=== PATIENT | female | born 1995 | race Caucasian/White ===

== ENCOUNTER 2020-10-09 14:06 | Outpatient (REF) | payer OTHER, SELFPAY | END 2020-10-09 14:07 | disposition home or self-care (01) | LOC: HO.LAB 14:06 | PROVIDERS: Visit Provider Internal Medicine | DX: Z20.828 Contact with and (suspected) exposure to other viral communicable diseases (principal) | CPT/HCPCS: C9803; U0003 ==

== ENCOUNTER 2020-11-04 04:56 | Emergency (ER) | payer OTHER, SELFPAY ==
[2020-11-04 05:00] VITALS: BP 119/74; PULSE 83; RESP 17; TEMP 36.7; O2SAT 99; BMI 25.2
[2020-11-04 05:06] LABS: Glucose, Whole Blood 147 mg/dL (60-115)
--- NOTE | 2020-11-04 05:56 | ED_ITS ---
HPI - Dizziness General Chief Complaint: Dizziness Stated Complaint: Dizziness/?Low Blood Sugar Time Seen by Provider: 11/04/20 05:56 Source: patient Mode of arrival: ambulatory Limitations: no limitations History of Present Illness HPI Narrative: Patient been feeling weak for last 1 week coughing occasionally had low degree temperature for last 2 days today she woke up at 03:00 feeling very weak and dizzy patient tested for COVID last month 10/09 was negative patient denies any urinary symptoms MD elicited complaint: dizziness and lightheadedness Related Data Allergies Allergy/AdvReac Type Severity Reaction Status Date / Time No Known Allergies Allergy Verified 11/04/20 05:00 Review of Systems Review of Systems: Constitutional : No Weight loss, +_Fever, No Chills ENT/Mouth : No sore throat, No Rhinorrhea Eyes: No Eye Pain, No Swelling Cardiovascular : No Chest Pain, no Dyspnea on Exertion, No Orthopnea, No Edema, No Palpitations, no SOB Respiratory : ++Cough, No Sputum Gastrointestinal : no Nausea, No Vomiting, No Diarrhea, No abdominal Pain, No Hematochezia, No Melena Genitourinary : No Dysuria, No Urinary Frequency Musculoskeletal : No joint pain, No Myalgias, No Joint Swelling Skin : No Skin Lesions, No rash Neuro : No Weakness, No Numbness, pos Dizziness, No Headache Psych : No Anxiety/Panic, No Depression Heme/Lymph: No Bruising, No Lymphadenopathy Endocrine : No Polyuria, No Polydipsia All other systems reviewed and are negative [facility] Past Medical History Medical History Hypoglycemia Social History Social History Advance Directives: No Advance Directives Information Provided: No Physical Exam Vital Signs: Vital Signs: Last Vital Signs Temp 98.0 F 11/04/20 05:00 Pulse 83 11/04/20 05:00 Resp 17 11/04/20 05:00 BP 119/74 11/04/20 05:00 Pulse Ox 99 11/04/20 05:00 Body Mass Index 25.2 Appearance: Alert. Oriented X3. No acute distress. Eyes: Pupils equal, round and reactive to light. ENT: Pharynx normal. Dry cough+ Neck: Normal inspection. Neck supple. CVS: Normal heart rate and rhythm. Pulses normal. Respiratory: No respiratory distress. Breath sounds normal. Abdomen: Soft and nontender. Bowel sounds present no mass palpable no CVA tenderness Skin: Skin warm and dry. Normal skin color. Normal skin turgor. Extremities: No lower extremity edema. Neuro: Oriented X 3. No motor deficit. No sensory deficit. MDM - Dizziness MDM Narrative Medical decision making narrative: Patient with weakness cough low-grade fever and dizziness likely viral infection possible COVID. Chest x-ray negative for any infiltrate waiting for the COVID result. Patient signed out to Dr. Bautista for reevaluation after lab results Lab Data Labs: Lab Results 11/04/20 Range/Units 05:01 POC Glucose 147 H (60-115) mg/dL
--- NOTE | 2020-11-04 06:01 | XR_ITS ---
EXAMINATION: CHEST 1 VIEW CLINICAL INFORMATION: Atypical pneumonia. COMPARISON: None. TECHNIQUE: An AP view of the chest is provided. FINDINGS: The cardiac silhouette is not enlarged. The mediastinal and hilar contours are unremarkable. There are neither pleural effusions nor pneumothoraces. There are no consolidations. The osseous structures are unremarkable. XR/XR chest 1V IMPRESSION: No evidence for acute disease.
[2020-11-04 06:41] LABS: Glucose Urine UA NEG (NEG); Leukocyte Esterase Urine NEG (NEG); Nitrite Urine NEG (NEG); PH 6.5 (5.0-8.0); Urine Blood 1+ (NEG); Urine Ketones 5 MG/DL (NEG); Urine Protein NEG (NEG-TRACE)
[2020-11-04 07:12] LABS: Appearance Urine HAZY; Color Urine YELLOW
[2020-11-04 07:14] LABS: Influenza A PCR NEGATIVE (Negative); Influenza B PCR NEGATIVE (Negative); Resp Syncy Virus RNA Qual PCR NEGATIVE (Negative)
[2020-11-04 07:16] LABS: Bacteria Urine 1+ /LPF; Mucus Urine 1+ /LPF; Squamous Epithelial Cell Urine 1+ /LPF; WBC Urine 0-2 /HPF (0-4)
[2020-11-04 07:21] LABS: UPreg QC Valid YES; Urine Pregnancy NEGATIVE (NEGATIVE)
[2020-11-04 07:24] VITALS: BP 115/72; PULSE 82; RESP 18; O2SAT 100
[2020-11-04 07:25] LABS: SARS COV2 PCR INHOUSE POSITIVE (Negative)
== END 2020-11-04 07:50 | disposition home or self-care (01) ==
PROVIDERS: Emergency Provider Internal Medicine
DX: R42 Dizziness and giddiness (principal); R05 Cough; R50.9 Fever, unspecified; Z20.828 Contact with and (suspected) exposure to other viral communicable diseases
CPT/HCPCS: 0241U; 71045; 81001; 81003; 81025; 82947; 99283

== ENCOUNTER 2025-03-03 02:59 | Emergency (ER) | payer OTHER, SELFPAY ==
[2025-03-03 03:00] VITALS: BP 116/70; PULSE 78; RESP 16; TEMP 36.2; O2SAT 97; BMI 27.7
[2025-03-03 03:43] LABS: Basophils Percent Auto 0.1 % (0-2); Eosinophils Absolute Auto 0.2 X10*3/uL (0.0-0.4); Hematocrit 37.1 % (37.0-47.0); Hemoglobin 12.7 g/dl (12.0-16.0); Imm Gran Abs Auto 0.02 X10*3/uL (0.00-0.03); Imm Gran Pct Auto 0.2 % (0.0-0.4); Lymphocytes Percent Auto 24.2 % (20-40); Mean Corpuscular HGB Conc 34.2 g/dl (31.0-35.0); Mean Corpuscular Hemoglobin 27.7 pg (27.0-33.0); Mean Corpuscular Volume 80.8 fL (80.0-98.0); Mean Platelet Volume 9.3 fL (9.4-12.3); Monocytes Absolute Auto 0.4 X10*3/uL (0.1-1.2); Monocytes Percent Auto 5.2 % (2-11); Neutrophils Absolute Auto 5.7 x10*3/uL (2.0-8.3); Neutrophils Percent Auto 68.3 % (45-73); Platelet Count 278 X10*3/uL (160-400); Red Blood Count 4.59 X10*6/uL (4.20-5.50); Red Cell Distribution Width 14.5 % (11.0-16.0); White Blood Count 8.3 X10*3/uL (4.8-10.8)
[2025-03-03 03:44] LABS: MANUAL DIFF FLAG NO
[2025-03-03 03:55] VITALS: BP 141/80; PULSE 82; RESP 16; TEMP 36.9; O2SAT 100
[2025-03-03 04:00] LABS: Glucose, Whole Blood 140 mg/dL (60-115)
[2025-03-03 04:04] LABS: Alanine Aminotransferase 14 U/L (0-31); Albumin Level 3.9 g/dL (3.5-5.0); Alkaline Phosphatase 63 U/L (39-117); Anion Gap 15 (12-20); Aspartate Amino Transferase 16 U/L (5-31); Bilirubin Total 0.4 mg/dL (0.0-1.0); Blood Urea Nitrogen 11 mg/dL (9-16); Calcium 9.1 mg/dL (8.4-10.2); Carbon Dioxide 19 mmol/L (22-29); Chloride 109 mmol/L (96-108); Creatinine Clr Calc Pharmacy 99.1; Estimated Glomerular Filt Rate > 60; Glucose Random 132 mg/dL (60-115); Potassium 3.6 mmol/L (3.3-5.1); Sodium 139 mmol/L (135-145)
--- NOTE | 2025-03-03 06:53 | ED.GENADULT ---
HPI - General Adult General Chief complaint: General Medical Stated complaint: low blood sugar Time Seen by Provider: 03/03/25 06:47 Source: patient and old records reviewed Mode of arrival: ambulatory Limitations: no limitations History of Present Illness ED Provider: AUREA OLIVA narrative: 29 yo female with PMH of hypoglycemia in [place] but it improved over past 3 years she has no recent infection, denies , eating well - she c/o feeling her sugar was low last night family and her checked it she has glucometer at home - BS 104 she ate then went down to 101. She is feeling fine now has dealt with this in the past. She does have a PCP. Currently BS normal. No other complaints. MD complaint: low BS Onset (ago): minute(s) ([employer]) Radiation: non-radiation Severity: moderate Relieving factors: none and eating Exacerbating factors: none Associated symptoms: other (tired and weak) Treatments prior to arrival: none Related Data Previous Rx's ?Medication ?Instructions ?Recorded dextrose 40 % oral gel (Glucose 10 g PO Q15M PRN hypoglycemia 03/03/25 Gel) #112.5 grams Allergies Allergy/AdvReac Type Severity Reaction Status Date / Time No Known Allergies Allergy Verified 03/03/25 03:00 Review of Systems Review of Systems: Constitutional : No Fever, No Chills, No Fatigue ENT/Mouth : No sore throat, No Rhinorrhea Eyes: No Eye Pain, No Swelling, No Redness Cardiovascular : No Chest Pain, No SOB, No Dyspnea on Exertion Respiratory : No Cough, No Sputum Gastrointestinal : No Nausea, No Vomiting, No Diarrhea, No abdominal Pain Genitourinary : No Dysuria, No Urinary Frequency, No Hematuria, Musculoskeletal : No joint pain, No Myalgias, No Joint Swelling Skin : No Skin Lesions, No rash Neuro : pos Weakness, No Numbness, No Dizziness, no Headache All other systems reviewed and are negative PMF[facility] Past Medical History Attestation statement: The following information was validated with the patient. Source: old records reviewed Medical History Hypoglycemia Social History Social History Smoked in Last 30 Days: No Use of substances other than those prescribed or required for medical reasons: No Advance Directives: No Advance Directives Information Provided: Yes Do you have a plan to hurt others: No Plan Patient : No Physical Exam ED Vital Signs: Vital Signs - 24 hr 03/03/25 03:00 03/03/25 03:55 Temperature 97.2 F 98.5 F Pulse Rate 78 82 Respiratory Rate 16 16 Blood Pressure 116/70 141/80 H Pulse Oximetry 97 100 Oxygen Delivery Method Room Air Room Air BMI result Body Mass Index 27.7 Appearance: Alert. Oriented X3. No acute distress. Eyes: Pupils equal, round and reactive to light. ENT: Pharynx normal. Neck: Normal inspection. Neck supple. CVS: Normal heart rate and rhythm. Pulses normal. Respiratory: No respiratory distress. Breath sounds normal. Abdomen: Soft and nontender. Skin: Skin warm and dry. Normal skin color. Normal skin turgor. Extremities: No lower extremity edema. No calf ttp Neuro: Oriented X 3. No motor deficit. No sensory deficit. CN2-12 intact Medical Decision Making Medical Decision Making [facility] Narrative: 29 yo female with PMH of hypoglycemia in [place] here with known hypoglycemia and BS dropped to 101 last night at this time no reported under 70 episodes. Will obtain labs, UPT and start on glucose gel with lifestyle and dietary adjustments she is to follow up with her PCP. Differential Diagnosis Differential Diagnoses: The differential diagnosis associated with the presentation includes known hypoglycemia, Admission/Observation Consideration of admission/observation: Escalation of care including admission/observation considered work up reassuring stable for DC Lab Data [facility] Lab Attestation statement: I reviewed the patient's lab results. 03/03/25 03:39 03/03/25 03:39 Labs: Lab Results 03/03/25 03/03/25 03/03/25 Range/Units 03:39 03:54 07:42 WBC 8.3 (4.8-10.8) X10*3/uL RBC 4.59 (4.20-5.50) X10*6/uL Hgb 12.7 (12.0-16.0) g/dl Hct 37.1 (37.0-47.0) % MCV 80.8 (80.0-98.0) fL MCH 27.7 (27.0-33.0) pg MCHC 34.2 (31.0-35.0) g/dl RDW 14.5 (11.0-16.0) % Plt Count 278 (160-400) X10*3/uL MPV 9.3 L (9.4-12.3) fL Immature Gran % (Auto) 0.2 (0.0-0.4) % Neut % (Auto) 68.3 (45-73) % Lymph % (Auto) 24.2 (20-40) % [place] % (Auto) 5.2 (2-11) % Eos % (Auto) 2.0 (0-4) % Baso % (Auto) 0.1 (0-2) % Lymph # (Auto) 2.0 (1.2-4.9) X10*3/uL [place] # (Auto) 0.4 (0.1-1.2) X10*3/uL Eos # (Auto) 0.2 (0.0-0.4) X10*3/uL Baso # (Auto) 0.0 (0.0-0.2) X10*3/uL Abs Immat Gran (auto) 0.02 (0.00-0.03) X10*3/uL Absolute Neuts (auto) 5.7 (2.0-8.3) x10*3/uL Absolute Nucleated RBC 0.000 (0.0-0.012) X10*3/uL Nucleated RBC % (auto) 0.0 (0.0-0.2) /100WBC Sodium 139 (135-145) mmol/L Potassium 3.6 (3.3-5.1) mmol/L Chloride 109 H (96-108) mmol/L Carbon Dioxide 19 L (22-29) mmol/L Anion Gap 15 (12-20) BUN 11 (9-16) mg/dL Creatinine 0.73 (0.5-1.4) mg/dL Estim Creat Clear Calc 99.1 Estimated GFR > 60 POC Glucose 140 H (60-115) mg/dL Random Glucose 132 H (60-115) mg/dL Calcium 9.1 (8.4-10.2) mg/dL Total Bilirubin 0.4 (0.0-1.0) mg/dL AST 16 (5-31) U/L ALT 14 (0-31) U/L Alkaline Phosphatase 63 (39-117) U/L Total Protein 7.0 (6.5-8.0) g/dL Albumin 3.9 (3.5-5.0) g/dL Urine Test NEGATIVE (NEGATIVE) External Record Review External record reviewed: Outpatient record Prescription Management I considered prescription management with: Other Discharge Plan Discharge Clinical Impression: Hypoglycemia Patient Disposition: Home, Self-Care Instructions: Non-diabetic Hypoglycemia (ED) Additional Instructions: small frequent meals monitor blood sugar closely return for any worsening symptoms or concerns ask your doctor for follow up appointment as soon as possible neg preg test Prescriptions: New dextrose [Glucose Gel] 40 % gel 10 g PO Q15M PRN (Reason: hypoglycemia) Qty: 112.5 0RF Rx Instructions: until symptoms of low blood sugar are controlled Print Language: Georgian
[2025-03-03 07:53] LABS: UPreg QC Valid YES; Urine Pregnancy NEGATIVE (NEGATIVE)
[2025-03-03 08:00] VITALS: BP 140/76; PULSE 82; RESP 16; TEMP 36.9; O2SAT 99
[2025-03-03 08:07] VITALS: BP 140/76; PULSE 82; RESP 18; TEMP 36.9; O2SAT 99
== END 2025-03-03 08:08 | disposition home or self-care (01) ==
PROVIDERS: Emergency Provider Emergency Medicine; PCP Family Medicine
DX: E16.2 Hypoglycemia, unspecified (principal); R53.1 Weakness
CPT/HCPCS: 36415; 80053; 81025; 82947; 85025; 99283; 99284